=== PATIENT | male | born 1965 | race Caucasian/White ===

== ENCOUNTER 2023-09-29 07:28 | Outpatient (REF) | payer MEDICARE, MEDICAID, SELFPAY ==
[2023-09-29 06:08] LABS: MANUAL DIFF FLAG NO
[2023-09-29 07:00] LABS: Basophils Percent Auto 0.8 % (0-2); Eosinophils Absolute Auto 0.1 X10*3/uL (0.0-0.4); Eosinophils Percent Auto 2.7 % (0-4); Hematocrit 21.3 % (42.0-52.0); Hemoglobin 7.4 g/dl (14.0-18.0); Imm Gran Abs Auto 0.01 X10*3/uL (0.00-0.03); Imm Gran Pct Auto 0.2 % (0.0-0.4); Lymphocytes Absolute Auto 0.9 X10*3/uL (1.2-4.9); Lymphocytes Percent Auto 18.1 % (20-40); Mean Corpuscular HGB Conc 34.7 g/dl (31.0-36.0); Mean Corpuscular Hemoglobin 36.3 pg (27.0-33.0); Mean Corpuscular Volume 104.4 fL (80.0-98.0); Mean Platelet Volume 9.6 fL (9.4-12.4); Monocytes Absolute Auto 0.6 X10*3/uL (0.1-1.2); Monocytes Percent Auto 11.7 % (2-11); Neutrophils Absolute Auto 3.4 x10*3/uL (2.0-8.3); Neutrophils Percent Auto 66.5 % (45-73); Red Blood Count 2.04 X10*6/uL (4.60-5.80); Red Cell Distribution Width 15.2 % (11.0-16.0); White Blood Count 5.2 X10*3/uL (4.8-10.8)
[2023-09-29 07:01] LABS: Platelet Count 72 X10*3/uL (160-400)
[2023-09-29 07:27] LABS: Anion Gap 9 (12-20); Blood Urea Nitrogen 12 mg/dL (9-16); Calcium 7.7 mg/dL (8.4-10.2); Carbon Dioxide 29 mmol/L (22-29); Chloride 96 mmol/L (96-108); Estimated Glomerular Filt Rate > 60; Glucose Random 94 mg/dL (60-115); Potassium 2.9 mmol/L (3.3-5.1); Sodium 131 mmol/L (135-145)
== END 2023-09-29 07:29 | disposition home or self-care (01) ==
LOC: HO.MMNH1L 07:28
PROVIDERS: Visit Provider Family Medicine
DX: E03.9 Hypothyroidism, unspecified (principal)
CPT/HCPCS: 36415; 80048; 85025

== ENCOUNTER 2023-09-29 10:45 | Outpatient (REF) | payer MEDICARE, SELFPAY | END 2023-09-29 10:46 | disposition home or self-care (01) | LOC: HO.MMNH1L 10:45 | PROVIDERS: Visit Provider Family Medicine | DX: Z13.89 Encounter for screening for other disorder (principal) ==

== ENCOUNTER 2023-10-06 07:19 | Outpatient (REF) | payer MEDICARE, MEDICAID, SELFPAY ==
[2023-10-06 06:04] LABS: MANUAL DIFF FLAG NO
[2023-10-06 06:06] LABS: Ammonia 57 umol/L (13-55)
[2023-10-06 06:36] LABS: Basophils Percent Auto 0.8 % (0-2); Eosinophils Absolute Auto 0.1 X10*3/uL (0.0-0.4); Hematocrit 22.9 % (42.0-52.0); Hemoglobin 7.8 g/dl (14.0-18.0); Imm Gran Abs Auto 0.01 X10*3/uL (0.00-0.03); Imm Gran Pct Auto 0.3 % (0.0-0.4); Lymphocytes Absolute Auto 0.7 X10*3/uL (1.2-4.9); Mean Corpuscular HGB Conc 34.1 g/dl (31.0-36.0); Mean Corpuscular Hemoglobin 35.8 pg (27.0-33.0); Mean Platelet Volume 9.6 fL (9.4-12.4); Monocytes Absolute Auto 0.5 X10*3/uL (0.1-1.2); Monocytes Percent Auto 12.6 % (2-11); Neutrophils Absolute Auto 2.3 x10*3/uL (2.0-8.3); Neutrophils Percent Auto 64.3 % (45-73); Platelet Count 76 X10*3/uL (160-400); Red Blood Count 2.18 X10*6/uL (4.60-5.80); Red Cell Distribution Width 15.2 % (11.0-16.0); White Blood Count 3.6 X10*3/uL (4.8-10.8)
[2023-10-06 06:50] LABS: Anion Gap 14 (12-20); Blood Urea Nitrogen 10 mg/dL (9-16); Carbon Dioxide 27 mmol/L (22-29); Chloride 96 mmol/L (96-108); Estimated Glomerular Filt Rate > 60; Glucose Random 87 mg/dL (60-115); Potassium 3.2 mmol/L (3.3-5.1); Sodium 134 mmol/L (135-145)
== END 2023-10-06 07:20 | disposition home or self-care (01) ==
LOC: HO.MMNH1L 07:19
PROVIDERS: Visit Provider Family Medicine
DX: I10 Essential (primary) hypertension (principal)
CPT/HCPCS: 36415; 80048; 82140; 85025

== ENCOUNTER 2023-10-13 06:29 | Outpatient (REF) | payer MEDICARE, MEDICAID, SELFPAY ==
[2023-10-13 06:03] LABS: Ammonia 57 umol/L (13-55); MANUAL DIFF FLAG NO
[2023-10-13 06:55] LABS: Basophils Absolute Auto 0.1 X10*3/uL (0.0-0.2); Basophils Percent Auto 0.9 % (0-2); Eosinophils Absolute Auto 0.2 X10*3/uL (0.0-0.4); Eosinophils Percent Auto 4.5 % (0-4); Hematocrit 25.5 % (42.0-52.0); Hemoglobin 8.8 g/dl (14.0-18.0); Imm Gran Abs Auto 0.01 X10*3/uL (0.00-0.03); Imm Gran Pct Auto 0.2 % (0.0-0.4); Lymphocytes Absolute Auto 0.8 X10*3/uL (1.2-4.9); Lymphocytes Percent Auto 15.3 % (20-40); Mean Corpuscular HGB Conc 34.5 g/dl (31.0-36.0); Mean Corpuscular Hemoglobin 35.9 pg (27.0-33.0); Mean Corpuscular Volume 104.1 fL (80.0-98.0); Mean Platelet Volume 9.9 fL (9.4-12.4); Monocytes Absolute Auto 0.6 X10*3/uL (0.1-1.2); Monocytes Percent Auto 10.4 % (2-11); Neutrophils Absolute Auto 3.6 x10*3/uL (2.0-8.3); Neutrophils Percent Auto 68.7 % (45-73); Platelet Count 84 X10*3/uL (160-400); Red Blood Count 2.45 X10*6/uL (4.60-5.80); Red Cell Distribution Width 15.2 % (11.0-16.0); White Blood Count 5.3 X10*3/uL (4.8-10.8)
[2023-10-13 07:13] LABS: Alanine Aminotransferase 16 U/L (0-40); Albumin Level 2.6 g/dL (3.5-5.0); Alkaline Phosphatase 171 U/L (39-117); Anion Gap 13 (12-20); Aspartate Amino Transferase 51 U/L (5-37); Blood Urea Nitrogen 13 mg/dL (9-16); Calcium 8.4 mg/dL (8.4-10.2); Carbon Dioxide 26 mmol/L (22-29); Chloride 96 mmol/L (96-108); Estimated Glomerular Filt Rate > 60; Glucose Random 102 mg/dL (60-115); Sodium 132 mmol/L (135-145); Total Protein 7.5 g/dL (6.5-8.0)
== END 2023-10-13 06:30 | disposition home or self-care (01) ==
LOC: HO.MMNH1L 06:29
PROVIDERS: Visit Provider Family Medicine
DX: E03.9 Hypothyroidism, unspecified (principal)
CPT/HCPCS: 36415; 80053; 82140; 85025

== ENCOUNTER 2023-10-21 06:34 | Outpatient (REF) | payer MEDICARE, MEDICAID, SELFPAY ==
[2023-10-21 06:16] LABS: MANUAL DIFF FLAG NO
[2023-10-21 06:20] LABS: Ammonia 79 umol/L (13-55)
[2023-10-21 06:53] LABS: Basophils Percent Auto 0.7 % (0-2); Eosinophils Absolute Auto 0.3 X10*3/uL (0.0-0.4); Eosinophils Percent Auto 6.7 % (0-4); Hematocrit 22.5 % (42.0-52.0); Hemoglobin 7.9 g/dl (14.0-18.0); Imm Gran Abs Auto 0.01 X10*3/uL (0.00-0.03); Imm Gran Pct Auto 0.2 % (0.0-0.4); Lymphocytes Absolute Auto 0.8 X10*3/uL (1.2-4.9); Lymphocytes Percent Auto 18.9 % (20-40); Mean Corpuscular HGB Conc 35.1 g/dl (31.0-36.0); Mean Corpuscular Hemoglobin 36.1 pg (27.0-33.0); Mean Corpuscular Volume 102.7 fL (80.0-98.0); Mean Platelet Volume 9.2 fL (9.4-12.4); Monocytes Absolute Auto 0.5 X10*3/uL (0.1-1.2); Monocytes Percent Auto 11.9 % (2-11); Neutrophils Absolute Auto 2.6 x10*3/uL (2.0-8.3); Neutrophils Percent Auto 61.6 % (45-73); Red Blood Count 2.19 X10*6/uL (4.60-5.80); Red Cell Distribution Width 15.9 % (11.0-16.0); White Blood Count 4.2 X10*3/uL (4.8-10.8)
[2023-10-21 06:54] LABS: Platelet Count 66 X10*3/uL (160-400)
[2023-10-21 07:08] LABS: Alanine Aminotransferase 13 U/L (0-40); Albumin Level 2.2 g/dL (3.5-5.0); Alkaline Phosphatase 167 U/L (39-117); Anion Gap 13 (12-20); Aspartate Amino Transferase 47 U/L (5-37); Bilirubin Total 2.9 mg/dL (0.0-1.0); Blood Urea Nitrogen 14 mg/dL (9-16); Calcium 7.9 mg/dL (8.4-10.2); Carbon Dioxide 26 mmol/L (22-29); Chloride 96 mmol/L (96-108); Estimated Glomerular Filt Rate > 60; Glucose Random 87 mg/dL (60-115); Potassium 3.9 mmol/L (3.3-5.1); Sodium 131 mmol/L (135-145); Total Protein 6.2 g/dL (6.5-8.0)
== END 2023-10-21 06:35 | disposition home or self-care (01) ==
LOC: HO.MMNH1L 06:34
PROVIDERS: Visit Provider Family Medicine
DX: E03.9 Hypothyroidism, unspecified (principal)
CPT/HCPCS: 36415; 80053; 82140; 85025

== ENCOUNTER 2023-10-28 06:35 | Outpatient (REF) | payer MEDICARE, MEDICAID, SELFPAY ==
[2023-10-28 06:16] LABS: MANUAL DIFF FLAG NO
[2023-10-28 06:27] LABS: Ammonia 55 umol/L (13-55)
[2023-10-28 06:40] LABS: Basophils Percent Auto 0.5 % (0-2); Eosinophils Absolute Auto 0.6 X10*3/uL (0.0-0.4); Eosinophils Percent Auto 10.3 % (0-4); Hematocrit 23.7 % (42.0-52.0); Hemoglobin 8.2 g/dl (14.0-18.0); Imm Gran Abs Auto 0.03 X10*3/uL (0.00-0.03); Imm Gran Pct Auto 0.5 % (0.0-0.4); Lymphocytes Percent Auto 17.5 % (20-40); Mean Corpuscular HGB Conc 34.6 g/dl (31.0-36.0); Mean Corpuscular Hemoglobin 35.7 pg (27.0-33.0); Mean Platelet Volume 9.5 fL (9.4-12.4); Monocytes Absolute Auto 0.5 X10*3/uL (0.1-1.2); Monocytes Percent Auto 9.2 % (2-11); Neutrophils Absolute Auto 3.6 x10*3/uL (2.0-8.3); Red Cell Distribution Width 15.9 % (11.0-16.0); White Blood Count 5.8 X10*3/uL (4.8-10.8)
[2023-10-28 06:41] LABS: Platelet Count 77 X10*3/uL (160-400)
[2023-10-28 06:48] LABS: Alanine Aminotransferase 15 U/L (0-40); Albumin Level 2.3 g/dL (3.5-5.0); Alkaline Phosphatase 238 U/L (39-117); Anion Gap 12 (12-20); Aspartate Amino Transferase 48 U/L (5-37); Bilirubin Total 2.5 mg/dL (0.0-1.0); Blood Urea Nitrogen 14 mg/dL (9-16); Carbon Dioxide 27 mmol/L (22-29); Chloride 100 mmol/L (96-108); Estimated Glomerular Filt Rate > 60; Glucose Random 105 mg/dL (60-115); Potassium 4.1 mmol/L (3.3-5.1); Sodium 135 mmol/L (135-145); Total Protein 6.3 g/dL (6.5-8.0)
== END 2023-10-28 06:36 | disposition home or self-care (01) ==
LOC: HO.MMNH1L 06:35
PROVIDERS: Visit Provider Family Medicine
DX: E03.9 Hypothyroidism, unspecified (principal)
CPT/HCPCS: 36415; 80053; 82140; 85025

== ENCOUNTER 2023-11-03 10:45 | Outpatient (REF) | payer MEDICARE, MEDICAID, SELFPAY | END 2023-11-03 10:46 | disposition home or self-care (01) | LOC: HO.MMNH1L 10:45 | PROVIDERS: Visit Provider Family Medicine | DX: E03.9 Hypothyroidism, unspecified (principal) | CPT/HCPCS: 36415; 80053; 82140; 85025 ==

== ENCOUNTER 2023-11-10 07:22 | Outpatient (REF) | payer MEDICARE, MEDICAID, SELFPAY ==
[2023-11-10 06:20] LABS: Ammonia 62 umol/L (13-55)
[2023-11-10 06:28] LABS: MANUAL DIFF FLAG NO
[2023-11-10 07:02] LABS: Basophils Absolute Auto 0.1 X10*3/uL (0.0-0.2); Basophils Percent Auto 1.1 % (0-2); Eosinophils Absolute Auto 0.8 X10*3/uL (0.0-0.4); Eosinophils Percent Auto 15.5 % (0-4); Hematocrit 23.5 % (42.0-52.0); Hemoglobin 8.1 g/dl (14.0-18.0); Imm Gran Abs Auto 0.01 X10*3/uL (0.00-0.03); Imm Gran Pct Auto 0.2 % (0.0-0.4); Lymphocytes Percent Auto 18.6 % (20-40); Mean Corpuscular HGB Conc 34.5 g/dl (31.0-36.0); Mean Corpuscular Hemoglobin 35.8 pg (27.0-33.0); Mean Platelet Volume 10.4 fL (9.4-12.4); Monocytes Absolute Auto 0.5 X10*3/uL (0.1-1.2); Monocytes Percent Auto 9.7 % (2-11); Neutrophils Absolute Auto 2.9 x10*3/uL (2.0-8.3); Neutrophils Percent Auto 54.9 % (45-73); Red Blood Count 2.26 X10*6/uL (4.60-5.80); Red Cell Distribution Width 16.5 % (11.0-16.0); White Blood Count 5.3 X10*3/uL (4.8-10.8)
[2023-11-10 07:03] LABS: Alanine Aminotransferase 21 U/L (0-40); Albumin Level 2.4 g/dL (3.5-5.0); Alkaline Phosphatase 228 U/L (39-117); Anion Gap 12 (12-20); Aspartate Amino Transferase 49 U/L (5-37); Bilirubin Total 3.4 mg/dL (0.0-1.0); Blood Urea Nitrogen 17 mg/dL (9-16); Calcium 8.1 mg/dL (8.4-10.2); Carbon Dioxide 27 mmol/L (22-29); Chloride 96 mmol/L (96-108); Estimated Glomerular Filt Rate 58; Glucose Random 82 mg/dL (60-115); Potassium 3.7 mmol/L (3.3-5.1); Sodium 131 mmol/L (135-145); Total Protein 6.4 g/dL (6.5-8.0)
[2023-11-10 07:19] LABS: Platelet Count 78 X10*3/uL (160-400)
== END 2023-11-10 07:23 | disposition home or self-care (01) ==
LOC: HO.MMNH2L 07:22
PROVIDERS: Visit Provider Family Medicine
DX: E03.9 Hypothyroidism, unspecified (principal)
CPT/HCPCS: 36415; 80053; 82140; 85025

== ENCOUNTER 2023-11-17 06:20 | Outpatient (REF) | payer MEDICARE, MEDICAID, SELFPAY ==
[2023-11-17 06:07] LABS: MANUAL DIFF FLAG NO
[2023-11-17 06:12] LABS: Ammonia 79 umol/L (13-55)
[2023-11-17 06:48] LABS: Basophils Percent Auto 0.7 % (0-2); Eosinophils Percent Auto 16.6 % (0-4); Hematocrit 21.5 % (42.0-52.0); Hemoglobin 7.4 g/dl (14.0-18.0); Imm Gran Abs Auto 0.02 X10*3/uL (0.00-0.03); Imm Gran Pct Auto 0.3 % (0.0-0.4); Lymphocytes Absolute Auto 1.1 X10*3/uL (1.2-4.9); Lymphocytes Percent Auto 17.4 % (20-40); Mean Corpuscular HGB Conc 34.4 g/dl (31.0-36.0); Mean Corpuscular Hemoglobin 35.9 pg (27.0-33.0); Mean Corpuscular Volume 104.4 fL (80.0-98.0); Mean Platelet Volume 9.9 fL (9.4-12.4); Monocytes Absolute Auto 0.6 X10*3/uL (0.1-1.2); Monocytes Percent Auto 9.6 % (2-11); Neutrophils Absolute Auto 3.4 x10*3/uL (2.0-8.3); Neutrophils Percent Auto 55.4 % (45-73); Red Blood Count 2.06 X10*6/uL (4.60-5.80); Red Cell Distribution Width 15.9 % (11.0-16.0); White Blood Count 6.1 X10*3/uL (4.8-10.8)
[2023-11-17 06:53] LABS: Platelet Count 69 X10*3/uL (160-400)
[2023-11-17 07:00] LABS: Alanine Aminotransferase 19 U/L (0-40); Albumin Level 2.2 g/dL (3.5-5.0); Alkaline Phosphatase 227 U/L (39-117); Anion Gap 10 (12-20); Aspartate Amino Transferase 45 U/L (5-37); Bilirubin Total 2.3 mg/dL (0.0-1.0); Blood Urea Nitrogen 24 mg/dL (9-16); Calcium 7.9 mg/dL (8.4-10.2); Carbon Dioxide 27 mmol/L (22-29); Chloride 97 mmol/L (96-108); Estimated Glomerular Filt Rate 47; Glucose Random 90 mg/dL (60-115); Sodium 130 mmol/L (135-145); Total Protein 5.9 g/dL (6.5-8.0)
== END 2023-11-17 06:21 | disposition home or self-care (01) ==
LOC: HO.MMNH2L 06:20
PROVIDERS: Visit Provider Family Medicine
DX: E03.9 Hypothyroidism, unspecified (principal)
CPT/HCPCS: 36415; 80053; 82140; 85025

== ENCOUNTER 2023-11-24 06:37 | Outpatient (REF) | payer MEDICARE, MEDICAID, SELFPAY ==
[2023-11-24 06:24] LABS: MANUAL DIFF FLAG NO
[2023-11-24 07:19] LABS: Basophils Absolute Auto 0.1 X10*3/uL (0.0-0.2); Basophils Percent Auto 0.9 % (0-2); Eosinophils Percent Auto 17.9 % (0-4); Hemoglobin 7.5 g/dl (14.0-18.0); Imm Gran Abs Auto 0.01 X10*3/uL (0.00-0.03); Imm Gran Pct Auto 0.2 % (0.0-0.4); Lymphocytes Absolute Auto 1.2 X10*3/uL (1.2-4.9); Lymphocytes Percent Auto 22.8 % (20-40); Mean Corpuscular HGB Conc 35.7 g/dl (31.0-36.0); Mean Corpuscular Hemoglobin 36.9 pg (27.0-33.0); Mean Corpuscular Volume 103.4 fL (80.0-98.0); Mean Platelet Volume 10.1 fL (9.4-12.4); Monocytes Absolute Auto 0.4 X10*3/uL (0.1-1.2); Monocytes Percent Auto 7.8 % (2-11); Neutrophils Absolute Auto 2.7 x10*3/uL (2.0-8.3); Neutrophils Percent Auto 50.4 % (45-73); Red Blood Count 2.03 X10*6/uL (4.60-5.80); White Blood Count 5.4 X10*3/uL (4.8-10.8)
[2023-11-24 07:40] LABS: Platelet Count 69 X10*3/uL (160-400)
[2023-11-24 07:48] LABS: Alanine Aminotransferase 19 U/L (0-40); Albumin Level 2.3 g/dL (3.5-5.0); Alkaline Phosphatase 193 U/L (39-117); Anion Gap 11 (12-20); Aspartate Amino Transferase 44 U/L (5-37); Bilirubin Total 3.3 mg/dL (0.0-1.0); Blood Urea Nitrogen 28 mg/dL (9-16); Calcium 8.2 mg/dL (8.4-10.2); Carbon Dioxide 26 mmol/L (22-29); Chloride 98 mmol/L (96-108); Estimated Glomerular Filt Rate 40; Glucose Random 72 mg/dL (60-115); Potassium 4.1 mmol/L (3.3-5.1); Sodium 131 mmol/L (135-145); Total Protein 6.1 g/dL (6.5-8.0)
== END 2023-11-24 06:38 | disposition home or self-care (01) ==
LOC: HO.MMNH2L 06:37
PROVIDERS: Visit Provider Family Medicine
DX: E03.9 Hypothyroidism, unspecified (principal)
CPT/HCPCS: 36415; 80053; 85025

== ENCOUNTER 2023-11-25 05:34 | Outpatient (REF) | payer MEDICARE, SELFPAY ==
[2023-11-25 05:38] LABS: MANUAL DIFF FLAG NO
[2023-11-25 05:57] LABS: Basophils Absolute Auto 0.1 X10*3/uL (0.0-0.2); Basophils Percent Auto 0.8 % (0-2); Eosinophils Absolute Auto 1.1 X10*3/uL (0.0-0.4); Eosinophils Percent Auto 16.7 % (0-4); Hematocrit 21.7 % (42.0-52.0); Hemoglobin 7.6 g/dl (14.0-18.0); Imm Gran Abs Auto 0.02 X10*3/uL (0.00-0.03); Imm Gran Pct Auto 0.3 % (0.0-0.4); Lymphocytes Percent Auto 16.1 % (20-40); Mean Corpuscular Hemoglobin 36.4 pg (27.0-33.0); Mean Corpuscular Volume 103.8 fL (80.0-98.0); Mean Platelet Volume 8.9 fL (9.4-12.4); Monocytes Absolute Auto 0.6 X10*3/uL (0.1-1.2); Monocytes Percent Auto 8.7 % (2-11); Neutrophils Absolute Auto 3.7 x10*3/uL (2.0-8.3); Neutrophils Percent Auto 57.4 % (45-73); Red Blood Count 2.09 X10*6/uL (4.60-5.80); Red Cell Distribution Width 15.1 % (11.0-16.0); White Blood Count 6.4 X10*3/uL (4.8-10.8)
[2023-11-25 05:58] LABS: Platelet Count 67 X10*3/uL (160-400)
== END 2023-11-25 05:35 | disposition home or self-care (01) ==
LOC: HO.MMNH2L 05:34
PROVIDERS: Visit Provider Family Medicine
DX: D64.9 Anemia, unspecified (principal)
CPT/HCPCS: 36415; 85025